=== PATIENT | female | born 1950 | race Hispanic/Latino ===

== ENCOUNTER → 2018-11-20 | Outpatient (CLI) | payer OTHER ==
[2018-11-20 10:00] LABS: BASOPHILS % (AUTO) 0.4 % (0.0-5.0); LYMPHOCYTES % (AUTO) 22.9 % (21.0-51.0); MEAN CORPUSCULAR HEMOGLOBIN 26.5 pg (27.0-33.0); MEAN CORPUSCULAR HGB CONC 32.9 g/dL (32.0-36.0); MEAN CORPUSCULAR VOLUME 80.4 fL (79-99); MONOCYTES % (AUTO) 5.2 % (3.0-13.0); NEUTROPHILS % (AUTO) 69.5 % (40.0-77.0); PLATELET COUNT (AUTO) 252 K/uL (130-400); RED BLOOD CELL COUNT(AUTO) 4.22 MIL/uL (4.00-5.50); RED CELL DISTRIBUTION WIDTH 14.5 % (11.0-15.5); WHITE BLOOD COUNT (AUTO) 7.6 K/uL (4.8-10.8)
[2018-11-20 10:09] LABS: CREATININE 1.2 mg/dL (0.5-1.5); POTASSIUM 4.6 mmol/L (3.5-5.1)
== END | disposition home or self-care (01) ==
LOC: LAB 09:16
PROVIDERS: ATTEND Urology
DX: R31.29 Other microscopic hematuria (principal)
CPT/HCPCS: 36415; 80048; 85025

== ENCOUNTER → 2018-11-24 | Outpatient (CLI) | payer OTHER ==
[~2018-11-24] MED LIST: IOHEXOL-350 75 ML VIAL IV ONE
== END | disposition home or self-care (01) ==
LOC: RAH 08:07
PROVIDERS: ATTEND Urology
DX: R31.9 Hematuria, unspecified (principal); I70.0 Atherosclerosis of aorta; N32.89 Other specified disorders of bladder; Z90.49 Acquired absence of other specified parts of digestive tract
CPT/HCPCS: 74178; Q9967

== ENCOUNTER → 2022-04-18 | Outpatient (CLI) | payer OTHER | END | disposition home or self-care (01) | LOC: SHCH 08:51 | PROVIDERS: ATTEND Internal Medicine Cardiovascular Disease | DX: I11.9 Hypertensive heart disease without heart failure (principal); E78.5 Hyperlipidemia, unspecified | CPT/HCPCS: 93306 ==

== ENCOUNTER → 2022-05-28 | Outpatient (CLI) | payer OTHER ==
[~2022-05-28] MED LIST changes: -IOHEXOL-350 75 ML VIAL IV ONE; +REGADENOSON 0.4 MG/5 ML PF SYG IVP SCH
== END | disposition home or self-care (01) ==
LOC: SHCH 07:56
PROVIDERS: ATTEND Internal Medicine Cardiovascular Disease
DX: R07.89 Other chest pain (principal)
CPT/HCPCS: 78452; 96374; 93017; J2785; A9500 ×2

== ENCOUNTER 2023-06-25 14:53 | Emergency (ER) | payer OTHER ==
[~2023-06-25] VITALS: Ht 157.5 cm; Wt 88.5 kg
[2023-06-25 15:02] VITALS: BP 167/94; PULSE 86; RESP 18
[2023-06-25] MEDS ORDERED: ACETAMINOPHEN 500 MG TABLET PO ONE (18:00)
[2023-06-25] MEDS ORDERED: ACET-66 PO (19:21)
== END 2023-06-25 19:35 | disposition home or self-care (01) ==
LOC: EDH 14:53
DX: S60.031A Contusion of right middle finger without damage to nail, initial encounter (principal); S60.041A Contusion of right ring finger without damage to nail, initial encounter; S80.01XA Contusion of right knee, initial encounter; E11.9 Type 2 diabetes mellitus without complications; E78.00 Pure hypercholesterolemia, unspecified; E03.9 Hypothyroidism, unspecified; I10 Essential (primary) hypertension; W01.0XXA Fall on same level from slipping, tripping and stumbling without subsequent striking against object, initial encounter; Y93.89 Activity, other specified; Y92.89 Other specified places as the place of occurrence of the external cause; Y99.8 Other external cause status
CPT/HCPCS: 73140; 73562

== ENCOUNTER 2024-04-12 15:28 | Emergency (ER) | payer OTHER ==
[~2024-04-12] VITALS: Ht 157.5 cm; Wt 92.5 kg
[~2024-04-12 15:28] MED LIST changes: +ACET-66 PO; -REGADENOSON 0.4 MG/5 ML PF SYG IVP SCH
[2024-04-12 15:40] VITALS: BP 151/66; PULSE 95; RESP 16; TEMP 97.6; O2SAT 98
[2024-04-12] MEDS ORDERED: ACET-2079 PO (15:53)
[2024-04-12] MEDS: ketOROlac 30MG VIAL (30MG/ML) IM STA (15:58)
[2024-04-12] MEDS: CYCLOBENZAPRINE HCL 10 MG TABLET PO ONE (15:59)
[2024-04-12] MEDS: acetaMINOPHEN WITH coDEINE 1 TAB TAB PO ONE (15:59)
== END 2024-04-12 16:24 | disposition home or self-care (01) ==
LOC: EDH 15:28
DX: S76.312A Strain of muscle, fascia and tendon of the posterior muscle group at thigh level, left thigh, initial encounter (principal); E03.9 Hypothyroidism, unspecified; E11.9 Type 2 diabetes mellitus without complications; E78.00 Pure hypercholesterolemia, unspecified; I10 Essential (primary) hypertension; Z90.49 Acquired absence of other specified parts of digestive tract; Z90.710 Acquired absence of both cervix and uterus; X58.XXXA Exposure to other specified factors, initial encounter; Y93.89 Activity, other specified; Y92.89 Other specified places as the place of occurrence of the external cause; Y99.8 Other external cause status
CPT/HCPCS: 99283; 96372; J1885

== ENCOUNTER 2024-05-01 16:48 | Emergency (ER) | payer OTHER ==
[~2024-05-01] VITALS: Ht 160 cm; Wt 87.5 kg
[~2024-05-01 16:48] MED LIST changes: +ACET-2079 PO
[2024-05-01] MEDS: hydroMORPHone 1 MG INJ IVP ONE (17:32)
[2024-05-01] MEDS: ketOROlac 15MG/ML VIAL (15MG/ML) IV ONE (17:32)
[2024-05-01 17:49] LABS: BASOPHILS # (AUTO) 0.04 K/uL (0.00-0.20); BASOPHILS % (AUTO) 0.6 % (0.0-5.0); EOSINOPHILS % (AUTO) 1.4 % (0.0-8.0); HEMATOCRIT 28.2 % (36-48); IMMATURE GRANULOCYTE ABSOLUTE 0.02 K/uL (0-1); LYMPHOCYTES # (AUTO) 1.4 K/uL (1.0-4.8); LYMPHOCYTES % (AUTO) 19.6 % (21.0-51.0); MEAN CORPUSCULAR HEMOGLOBIN 28.2 pg (27.0-33.0); MEAN CORPUSCULAR VOLUME 82.7 fL (79-99); MONOCYTES # (AUTO) 0.4 K/uL (0.1-1.0); NEUTROPHILS # (AUTO) 5.2 K/uL (1.8-7.7); NEUTROPHILS % (AUTO) 73.1 % (40.0-77.0); PLATELET COUNT (AUTO) 230 K/uL (130-400); RED BLOOD CELL COUNT(AUTO) 3.41 MIL/uL (4.00-5.50); RED CELL DISTRIBUTION WIDTH 13.2 % (11.0-15.5); WHITE BLOOD COUNT (AUTO) 7.2 K/uL (4.8-10.8)
[2024-05-01 17:56] LABS: CREATININE 1.9 mg/dL (0.5-1.0); POTASSIUM 3.8 mmol/L (3.5-5.1)
--- NOTE | 2024-05-01 17:56 | ERN ---
General Chief Complaint: Lower Extremity Pain/Injury Stated Complaint: L LEG PAIN Time Seen by MD: 16:51 History of Present Illness Initial Comments 74-year-old female who presents for lower back pain. Patient reports a few weeks ago she strained her back/left leg. Since then the pain has been getting worse. Pain starts in the buttock area shoots down behind her knee and into her calf. It also goes into her left lateral back. She does have some midline tenderness. She has an antalgic gait but she is ambulatory. She denies any fevers, vomiting, diarrhea dysuria or bowel incontinence. She went to her PCP and started physical therapy. She has been taking Tylenol with codeine and tramadol without relief. Allergies: Coded Allergies: No Known Allergies (Verified Allergy, Unknown, 05/27/22) Home Meds Active Scripts Meloxicam (Meloxicam) 15 Mg Tablet, 15 MG PO DAILY PRN for PAIN for 10 Days, #10 TAB Prov:CORI DICKINSON DO 05/01/24 Oxycodone HCl/Acetaminophen (Percocet 5-325 mg Tablet) 5 Mg-325 Mg Tablet, 1 TAB PO QIDP PRN for PAIN for 5 Days, #20 TAB 0 Refills Prov:CORI DICKINSON DO 05/01/24 Acetaminophen with Codeine (Acetaminophen-Cod #3 Tablet) 300 Mg-30 Mg Tablet, 1 TAB PO Q4H PRN for MODERATE TO SEVERE PAIN, #15 TAB 0 Refills Prov:JAKOB ALVARADO SOCK FOLDER 04/12/24 Acetaminophen (Tylenol) 500 Mg Tab, 500 MG PO TIDP, #30 TAB Prov:NATALEE VALENCIA PAC 06/25/23 Past Medical History Past Medical History: Diabetes-Type II, High Cholesterol, Hypertension, Renal Disese Past Surgical History: Appendectomy, Hysterectomy Female( History) History: Not Applicable ROS Dictation CONSTITUTIONAL: No chills, no fever, no weakness, no diaphoresis, no malaise. HEAD/FACE: No signs of trauma. EENT: No eye pain, no blurred vision, no tearing, no double vision, no ear pain, no ear discharge, no nose pain, no nasal congestion, no throat pain, no throat swelling, no mouth pain. RESPIRATORY: No cough, no orthopnea, no SOB, no stridor, no wheezing. CARDIOVASCULAR: No chest pain, no edema, no palpitations, no syncope. GASTROINTESTINAL/ABDOMINAL: No abdominal pain, no constipation, no diarrhea, no nausea, no vomiting. GENITOURINARY: No abnormal discharge, no dysuria, no frequent urination, no hematuria. No complaints of pain in the genitals. MUSCULOSKELETAL: Lower back pain INTEGUMENTARY: No change in color, no change in hair/nails, no dryness, no lesion, no lumps, no rash. NEUROLOGICAL/PSYCH: No anxiety, not depressed, no emotional problem, no headache, no numbness, no pre-existing deficit, no history of seizures, no tremors, no weakness. HEMATOLOGIC/LYMPHATIC: Not anemic, no history of blood clots, no apparent bleeding, no bruising, glands not swollen. All Systems Negative, Except as Noted. Physical Exam Physical Exam Dictation VITAL SIGNS: Reviewed. GENERAL APPEARANCE: Alert, oriented x3, no acute distress, obese. HEAD AND FACE: Non-traumatic. EYES: PERRL, pink conjunctivas, eyelid no trauma, anterior chamber clear. EARS: Pinnas intact and no signs of trauma or erythema. Ear canals clear and no discharge. TMs no erythema. NOSE: No discharge, no bleeding. OROPHARYNX: Mouth normal, teeth no caries, tongue pink. Pharynx clear, no er ythema. Tonsils no exudates, no abscesses noted. Mucous membrane moist. NECK: Supple, non-tender, no thyromegaly, no masses, no JVD, no bruits. BREAST: Deferred. CHEST: No tenderness, no crepitus, no paradoxical movement, no retractions. LUNGS: Clear, well-ventilated, symmetric, no rales, no wheezing, no rhonchi, no stridor, good breath sounds bilaterally. HEART: Regular rate, regular rhythm, no murmur, no gallops. VASCULAR: No peripheral edema. ABDOMEN: Soft, positive bowel sounds, nondistended, no guarding, nontender, no rebound, no masses no hepatomegaly, no splenomegaly, no Lamar's sign, no hernias. RECTAL: Deferred. GENITAL: Deferred. NEUROLOGICAL: Normal speech, gross motor function intact, gross sensory function intact. MUSCULOSKELETAL: Neck nontender, full range of motion, back nontender, full range of motion. EXTREMITIES: Nontender, full range of motion. SKIN: Color pink, dry, no turgor, no rash, no lacerations, no abrasions, no contusions. LYMPHATICS: Deferred. Results Laboratory and Microbiology Lab and Micro Result Laboratory Tests Test 05/01/24 17:23 White Blood Count 7.2 K/uL (4.8-10.8) Red Blood Count 3.41 MIL/uL (4.00-5.50) L Hemoglobin 9.6 g/dL (12.0-16.0) L Hematocrit 28.2 % (36-48) L Mean Corpuscular Volume 82.7 fL (79-99) Mean Corpuscular Hemoglobin 28.2 pg (27.0-33.0) Mean Corpuscular Hemoglobin Concent 34.0 g/dL (32.0-36.0) Red Cell Distribution Width 13.2 % (11.0-15.5) Platelet Count 230 K/uL (130-400) Mean Platelet Volume 12.7 fL (7.5-10.5) H Immature Granulocyte % (Auto) 0.3 % (0-1) Neutrophils (%) (Auto) 73.1 % (40.0-77.0) Lymphocytes (%) (Auto) 19.6 % (21.0-51.0) L Monocytes (%) (Auto) 5.0 % (3.0-13.0) Eosinophils (%) (Auto) 1.4 % (0.0-8.0) Basophils (%) (Auto) 0.6 % (0.0-5.0) Neutrophils # (Auto) 5.2 K/uL (1.8-7.7) Lymphocytes # (Auto) 1.4 K/uL (1.0-4.8) Monocytes # (Auto) 0.4 K/uL (0.1-1.0) Eosinophils # (Auto) 0.10 K/uL (0.00-0.70) Basophils # (Auto) 0.04 K/uL (0.00-0.20) Absolute Immature Granulocyte (auto 0.02 K/uL (0-1) Nucleated Red Blood Cells 0.0 % (0.0-0.19) Erythrocyte Sedimentation Rate 35 MM/HR (0-30) H Sodium Level 134 mmol/L (136-145) L Potassium Level 3.8 mmol/L (3.5-5.1) Chloride Level 98 mmol/L (101-111) L Carbon Dioxide Level 28 mmol/L (21-32) Blood Urea Nitrogen 33 mg/dL (7-18) H Creatinine 1.9 mg/dL (0.5-1.0) H Glomerular Filtration Rate Calc 28 mL/min (>90) Random Glucose 118 mg/dL (70-105) H Total Calcium 9.4 mg/dL (8.5-10.1) Total Bilirubin 0.4 mg/dL (0.2-1.0) Aspartate Amino Transf (AST/SGOT) 14 U/L (10-37) Alanine Aminotransferase (ALT/SGPT) 17 U/L (12-78) Alkaline Phosphatase 53 U/L (50-136) Total Protein 7.2 g/dL (6.0-8.3) Albumin 3.9 g/dL (3.5-5.0) MDM CC: Left-sided sciatic type pain Historian: Patient Comorbidities: DLD, HTN, DM Limitations by social determinants: None Initial concern for sciatica. She does have a bit of midline tenderness so we will get a CT scan Differential diagnosis: Sciatic nerve pain, fracture, other Patient is in a significant amount of pain, but she has full range of motion. She is able to flex and extend the toes, ankles, knees, and hips. She has normal sensation in the legs particularly the inner thighs. Normal reflexes to the knees. She does have some bony tenderness. Vital signs: Hypertensive otherwise stable The labs show normocytic anemia. Chemistry stable. She does have CKD. ESR mildly elevated at 35. CT scan of the pelvis in the lumbar spine without contrast per my independent interpretation shows no obvious fractures. Radiology read as chronic disease changes. Consistent Patient received IV Dilaudid and Toradol here in the ER. I evaluated the patient once again, she appears stable. I did discuss observation for pain control versus discharge. At this point in time patient reports feeling better. She prefers discharge. We will discharge with some meloxicam and Percocets for pain. ED Course Orders Procedure Category Date Status Time Cbc With Differential LAB 05/01/24 Complete 17:22 Comprehensive LAB 05/01/24 Complete Metabolic Panel 17:22 Erythrocyte LAB 05/01/24 Complete Sedimentation Rate 17:22 Ketorolac PHA 05/01/24 Complete Tromethamine 15mg/Ml 17:30 Hydromorphone 1 Mg PHA 05/01/24 Complete Inj (Dilaudid 1mg Inj 17:30 Ct Lumbar Spine W/O CT 05/01/24 Resulted Contrast 17:27 Ct Pelvis W/O Contrast CT 05/01/24 Resulted 17:27 Current Medications Medications (Trade) Dose Ordered Sig/Stalin Route PRN Reason Start Time Stop Time Status Last Admin Dose Admin Hydromorphone HCl (DiLAUDid 1MG INJ) 1 mg ONCE ONCE IVP 05/01/24 17:30 05/01/24 17:31 DC 05/01/24 17:32 Ketorolac Tromethamine (toRADol) 15 mg ONCE ONCE IV 05/01/24 17:30 05/01/24 17:31 DC 05/01/24 17:32 Vital Signs Date Time Temp Pulse Resp B/P (MAP) Pulse Ox O2 Delivery O2 Flow Rate FiO2 05/01/24 19:12 98.4 69 18 141/63 99 Room Air* 0 21 05/01/24 17:03 98.4 67 18 159/50 100 Room Air* 0 21 05/01/24 16:56 98.4 67 18 171/62 100 Room Air DX & DISP Disposition: Discharge Departure Impression: Primary Impression: Sciatica of left side Condition: Stable Scripts Meloxicam (Meloxicam) 15 Mg Tablet 15 MG PO DAILY PRN for PAIN for 10 Days, #10 TAB Prov: CORI DICKINSON DO 05/01/24 Oxycodone HCl/Acetaminophen (Percocet 5-325 mg Tablet) 5 Mg-325 Mg Tablet 1 TAB PO QIDP PRN for PAIN for 5 Days, #20 TAB 0 Refills Prov: CORI DICKINSON DO 05/01/24 Additional Instructions: Your symptoms are consistent with sciatic nerve pain. Your lab work (CBC, BMP, ESR) is stable. The CT scan of your lumbar spine and pelvis shows degenerative changes such as arthritis. There are no other major bony abnormalities. I have prescribed meloxicam. Take this medication daily for pain. I have prescribed Percocet, which is an opiate pain medication. You can take one of these with a regular strength (325 mg) Tylenol. You can do this up to 4 times a day as needed for pain. I recommend using a heating pad. Use lidocaine or Salonpas patches. These are [id number]. Continue with the physical therapy. Please follow up with your primary doctor. You may need further studies or treatment. Referrals: YEVGENIY BARNEY MD (PCP) CORI DICKINSON DO May 01, 2024 17:56
[2024-05-01 18:01] LABS: ALBUMIN 3.9 g/dL (3.5-5.0); BILIRUBIN,TOTAL 0.4 mg/dL (0.2-1.0); TOTAL PROTEIN, SERUM 7.2 g/dL (6.0-8.3)
--- NOTE | 2024-05-01 18:11 | HMCIMG ---
CT LUMBAR SPINE W/O CONTRAST HISTORY: lower back pain TECHNIQUE: CT LUMBAR SPINE W/O CONTRAST. Coronal and sagittal reformats were obtained. CT was performed with one or more of the following dose reduction techniques: Automated exposure control, adjustment of the mA and/or kV according to the patient's size, or use of the iterative reconstruction technique. FINDINGS: Evaluation of the discs and cord is limited with CT. No evidence of compression fracture or subluxation. There is diffuse osteopenia degraded evaluation of the study. Multilevel degenerative changes are noted Atherosclerotic changes of the aorta. IMPRESSION: No acute compression fracture is identified. There is diffuse osteopenia degraded evaluation of the study. Multilevel degenerative changes are noted
--- NOTE | 2024-05-01 18:13 | HMCIMG ---
CT PELVIS W/O CONTRAST HISTORY: lower back pain TECHNIQUE: CT pelvis was performed without contrast. Coronal and sagittal reformats were obtained. CT was performed with one or more of the following dose reduction techniques: Automated exposure control, adjustment of the mA and/or kV according to the patient's size, or use of the iterative reconstruction technique. FINDINGS: Degenerative changes of the visualized spine are seen. No displaced fracture or dislocation is seen. There is no bowel obstruction. Atherosclerotic changes of the aorta are noted. Distended urinary bladder. IMPRESSION: No acute CT findings.
[2024-05-01] MEDS ORDERED: MELO-108 PO (18:40)
[2024-05-01] MEDS ORDERED: OXYC-38 PO (18:40)
[2024-05-01 19:00] LABS: ERYTHROCYTE SEDIMENTATION RATE 35 MM/HR (0-30)
[2024-05-01 19:12] VITALS: BP 141/63; PULSE 69; RESP 18; TEMP 98.4; O2SAT 99
== END 2024-05-01 19:43 | disposition home or self-care (01) ==
LOC: EDH 16:48
DX: M54.42 Lumbago with sciatica, left side (principal); E11.9 Type 2 diabetes mellitus without complications; E78.00 Pure hypercholesterolemia, unspecified; I10 Essential (primary) hypertension; Z79.899 Other long term (current) drug therapy; Z90.49 Acquired absence of other specified parts of digestive tract; Z90.710 Acquired absence of both cervix and uterus; X50.9XXA Other and unspecified overexertion or strenuous movements or postures, initial encounter; Y93.89 Activity, other specified; Y92.89 Other specified places as the place of occurrence of the external cause; Y99.8 Other external cause status
CPT/HCPCS: 99285; 72131; 96374; 96375; 80053; 85025; 85651; 36415; 72192; J1171; J1885

== ENCOUNTER → 2024-08-16 | Outpatient (CLI) | payer OTHER ==
[~2024-08-16] MED LIST changes: +MELO-108 PO; +OXYC-38 PO
--- NOTE | 2024-08-16 16:46 | HMCIMG ---
HIP UNILAT 2-3VW LEFT HISTORY: Back pain COMPARISON: None TECHNIQUE: 3 images of left hip were obtained. FINDINGS: There is no acute displaced fracture or dislocation. There are phleboliths. Left hip joint space narrowing is seen. Degenerative changes are seen. IMPRESSION: 1. Findings as described above.
== END | disposition home or self-care (01) ==
LOC: RAH 09:17
PROVIDERS: ATTEND Neurological Surgery
DX: M16.12 Unilateral primary osteoarthritis, left hip (principal); M54.16 Radiculopathy, lumbar region; I87.8 Other specified disorders of veins
CPT/HCPCS: 73502

== ENCOUNTER → 2024-11-03 | Outpatient (CLI) | payer OTHER ==
[2024-11-03] MEDS: REGADENOSON 0.4 MG/5 ML PF SYG IVP ONE (12:30)
== END | disposition home or self-care (01) ==
LOC: SHCH 08:06
PROVIDERS: ATTEND Internal Medicine Cardiovascular Disease
DX: I20.0 Unstable angina (principal); R07.89 Other chest pain
CPT/HCPCS: 78452; 93017; J2785; A9500 ×2